=== PATIENT | female | born 1945 ===

== ENCOUNTER 2018-07-29 11:49 | Emergency (ER) | payer OTHER ==
--- NOTE | 2018-07-29 12:46 | ER ---
Nurse's Notes [facility] Name: Rina Conklin Age: 73 yrs Sex: Female : 1945 Arrival Date: 07/29/2018 Time: 11:54 Bed 6 Private MD: Diagnosis: Fall due to bumping against object;Displaced comminuted fracture of shaft of left femur-periprosthetic Presentation: 07/29 11:50 Presenting complaint: EMS states: pt fell today and is c/o left knee pain and swelling. sv Warm to the touch and "heard a crunch pop sound". Reports having surgery 6 months ago. Bp 155/76 HR-74 RR-17 99% RA. Daughter told EMS that the pt has taken 36 Zquil pills since yesterday and she took Methocarbam today at 0830. Transition of care: patient was not received from another setting of care. Onset of symptoms was July 29, 2018. Care prior to arrival: None. 11:50 Method Of Arrival: EMS: [facility] sv 11:50 Acuity: ROSENDO 4 sv 11:52 Presenting complaint: Patient states: "I slipped on some water and fell onto my back. I sv did not land on my left knee. But my left knee hurts a lot and is more swollen than normal.". Risk Assessment: Do you want to hurt yourself or someone else? Patient reports no desire to harm self or others. Initial Sepsis Screen: Does the patient meet any 2 criteria? No. Patient's initial sepsis screen is negative. Does the patient have a suspected source of infection? No. Patient's initial sepsis screen is negative. Triage Assessment: 11:50 General: Appears in no apparent distress. uncomfortable, well developed, Behavior is sv cooperative, appropriate for age, anxious. Pain: Complains of pain in left leg Pain currently is 10 out of 10 on a pain scale. Quality of pain is described as tender, throbbing, Pain began 1 hour ago. Is continuous, Aggravated by increased activity. Neuro: Level of Consciousness is awake, alert, obeys commands, Oriented to person, place, time, situation, Speech is normal. Cardiovascular: Heart tones S1 S2 present Capillary refill < 3 seconds is brisk in bilateral toes Patient's skin is warm and dry. Pulses are palpable in right radial artery, right dorsalis pedis artery, left radial artery and left dorsalis pedis artery. Respiratory: Airway is patent Respiratory effort is even, unlabored, Respiratory pattern is regular, symmetrical, Breath sounds are clear bilaterally. Derm: Skin is pink, warm \\T\\ dry. Musculoskeletal: Range of motion: limited in left knee Swelling present in left knee. Historical: - Allergies: 12:06 Aspirin; sv - Home Meds: 12:06 Crestor 20 mg oral tab 1 tab once daily [Active]; duloxetine 30 mg oral cpDR 1 cap once sv daily [Active]; Neurontin 800 mg Oral tab 1 tab 3 times per day [Active]; baclofen 10 mg Oral tab 1 tab 3 times per day [Active]; trazodone 50 mg Oral tab nightly [Active]; - PMHx: 12:06 Fibromyalgia; sv - PSHx: 12:06 Hysterectomy; left knee; sv - Immunization history:: Adult Immunizations up to date. - Social history:: Smoking status: Patient/guardian denies using tobacco. - Family history:: not pertinent. - Ebola Screening: : No symptoms or risks identified at this time. Screenin:55 Abuse screen: Denies threats or abuse. Denies injuries from another. Nutritional sv screening: No deficits noted. Tuberculosis screening: No symptoms or risk factors identified. Fall Risk No fall in past 12 months (0 pts). No secondary diagnosis (0 pts). No IV (0 pts). Ambulatory Aid- None/Bed Rest/Nurse Assist (0 pts). Gait- Weak (10 pts.). Mental Status- Oriented to own ability (0 pts). Total [place] Fall Scale indicates No Risk (0-24 pts). Assessment: 12:50 Reassessment: Patient appears in no apparent distress at this time. No changes from sv previously documented assessment. Patient and/or family updated on plan of care and expected duration. Pain level reassessed. Patient is alert, oriented x 3, equal unlabored respirations, skin warm/dry/pink. 13:42 Reassessment: Patient appears in no apparent distress at this time. Patient and/or sv family updated on plan of care and expected duration. Pain level reassessed. Patient is alert, oriented x 3, equal unlabored respirations, skin warm/dry/pink. Patient states feeling better. Vital Signs: 11:50 BP 137 / 69; Pulse 78; Resp 16; Temp 98.3; Pulse Ox 98% ; Weight 56.7 kg; Height 5 ft. sv 3 in. (160.02 cm); Pain 10/10; 12:30 BP 139 / 74; Pulse 80; Resp 14; Pulse Ox 99% ; sv 13:00 BP 118 / 65; Pulse 71; Resp 16; Pulse Ox 99% ; sv 13:15 Pain 7/10; sv 14:15 Pain 4/10; sv 11:50 Body Mass Index 22.14 (56.70 kg, 160.02 cm) sv ED Course: 11:50 Patient has correct armband on for positive identification. Bed in low position. Call sv light in reach. Side rails up X2. Adult w/ patient. potline monitor on. Pulse ox on. NIBP on. Door closed. Head of bed elevated. 11:54 Patient arrived in ED. sv 11:54 Mitali Schwarz RN is Primary Nurse. sv 11:55 Nic Milian MD is Attending Physician. estephania 12:05 Triage completed. sv 12:07 Arm band placed on. sv 12:19 Knee Left 3 View XRAY In Process Unspecified. EDMS 12:50 Initial lab(s) drawn, by nm, sent to lab. Inserted saline lock: 20 gauge in right sv forearm, using aseptic technique. Blood collected. Flushed right forearm with 5 ml normal saline. 13:[address] Milian with the [facility] transfer center. eb 13:06 administrative approval given by Jim Wyman RN at the [facility] transfer eb center/ patient is going to the ER/ Lilia Short has accepted the patient in transfer/ report to be called to [phone]. 13:09 XRAY Chest (1 view) In Process Unspecified. EDMS 13:44 No provider procedures requiring assistance completed. Patient transferred, IV remains sv in place. intact. 13:55 EKG done, by ED staff, reviewed by Nic Milian MD. ms Administered Medications: 13:00 Drug: morphine 4 mg Route: IVP; Site: right forearm; sv 13:15 Follow up: Pain 7/10 Adult; Response: No adverse reaction sv 13:00 Drug: Zofran 4 mg Route: IVP; Site: right forearm; sv 13:15 Follow up: Response: No adverse reaction sv 13:01 Drug: NS 0.9% 1000 ml Route: IV; Rate: 125 ml/hr; Site: right forearm; sv 13:57 Drug: morphine 4 mg Route: IVP; Site: right forearm; sv 14:15 Follow up: Pain /10 Adult; Response: No adverse reaction; Pain is decreased sv Outcome: 12:45 ER care complete, transfer ordered by . estephania 13:39 Transferred by ground EMS to [facility], Transfer form completed. X-rays sent sv w/ patient. Note: Report called to Gena GASPAR at [facility] ER 13:39 Condition: stable 13:39 Instructed on the need for transfer. 14:49 Patient left the ED. aj1 Signatures: Dispatcher [employer] Nanda Choudhury RN RN ajMitali Holliday RN RN sv Anderson, Corey, MD MD cha Solis, Maria ms Botello, Elizabeth eb
--- NOTE | 2018-07-29 12:47 | EDPHYS ---
Physician Documentation [facility] Name: Rina Conklin Age: 73 yrs Sex: Female : 1945 Arrival Date: 07/29/2018 Time: 11:54 Bed 6 Private MD: ED Physician Nic Milian HPI: 07/29 12:38 This 73 yrs old Female presents to ER via EMS with complaints of Knee Injury, estephania Fall Injury. 12:38 Details of fall: The patient fell from an upright position, while walking. Onset: The estephania symptoms/episode began/occurred just prior to arrival. Associated injuries: The patient sustained left leg, decreased range of motion, painful injury, swelling. Historical: - Allergies: 12:06 Aspirin; sv - Home Meds: 12:06 Crestor 20 mg oral tab 1 tab once daily [Active]; duloxetine 30 mg oral cpDR 1 cap once sv daily [Active]; Neurontin 800 mg Oral tab 1 tab 3 times per day [Active]; baclofen 10 mg Oral tab 1 tab 3 times per day [Active]; trazodone 50 mg Oral tab nightly [Active]; - PMHx: 12:06 Fibromyalgia; sv - PSHx: 12:06 Hysterectomy; left knee; sv - Immunization history:: Adult Immunizations up to date. - Social history:: Smoking status: Patient/guardian denies using tobacco. - Family history:: not pertinent. - Ebola Screening: : No symptoms or risks identified at this time. ROS: 12:38 Constitutional: Negative for fever, chills, and weight loss, Eyes: Negative for injury, estephania pain, redness, and discharge, ENT: Negative for injury, pain, and discharge, Neck: Negative for injury, pain, and swelling, Cardiovascular: Negative for chest pain, palpitations, and edema, Respiratory: Negative for shortness of breath, cough, wheezing, and pleuritic chest pain, Abdomen/GI: Negative for abdominal pain, nausea, vomiting, diarrhea, and constipation, Back: Negative for injury and pain, : Negative for injury, bleeding, discharge, and swelling, Skin: Negative for injury, rash, and discoloration, Neuro: Negative for headache, weakness, numbness, tingling, and seizure, Psych: Negative for depression, anxiety, suicide ideation, homicidal ideation, and hallucinations, Allergy/Immunology: Negative for hives, rash, and allergies, Endocrine: Negative for neck swelling, polydipsia, polyuria, polyphagia, and marked weight changes, Hematologic/Lymphatic: Negative for swollen nodes, abnormal bleeding, and unusual bruising. 12:38 MS/extremity: Positive for decreased range of motion, pain, swelling, tenderness, of the left knee. Exam: 12:38 Constitutional: This is a well developed, well nourished patient who is awake, alert, estephania and in no acute distress. Head/Face: Normocephalic, atraumatic. Eyes: Pupils equal round and reactive to light, extra-ocular motions intact. Lids and lashes normal. Conjunctiva and sclera are non-icteric and not injected. Cornea within normal limits. Periorbital areas with no swelling, redness, or edema. ENT: Nares patent. No nasal discharge, no septal abnormalities noted. Tympanic membranes are normal and external auditory canals are clear. Oropharynx with no redness, swelling, or masses, exudates, or evidence of obstruction, uvula midline. Mucous membranes moist. Neck: Trachea midline, no thyromegaly or masses palpated, and no cervical lymphadenopathy. Supple, full range of motion without nuchal rigidity, or vertebral point tenderness. No Meningismus. Chest/axilla: Normal chest wall appearance and motion. Nontender with no deformity. No lesions are appreciated. Cardiovascular: Regular rate and rhythm with a normal S1 and S2. No gallops, murmurs, or rubs. Normal PMI, no JVD. No pulse deficits. Respiratory: Lungs have equal breath sounds bilaterally, clear to auscultation and percussion. No rales, rhonchi or wheezes noted. No increased work of breathing, no retractions or nasal flaring. Abdomen/GI: Soft, non-tender, with normal bowel sounds. No distension or tympany. No guarding or rebound. No evidence of tenderness throughout. Back: No spinal tenderness. No costovertebral tenderness. Full range of motion. Female : Normal external genitalia. Skin: Warm, dry with normal turgor. Normal color with no rashes, no lesions, and no evidence of cellulitis. Neuro: Awake and alert, GCS 15, oriented to person, place, time, and situation. Cranial nerves II-XII grossly intact. Motor strength 5/5 in all extremities. Sensory grossly intact. Cerebellar exam normal. Normal gait. Psych: Awake, alert, with orientation to person, place and time. Behavior, mood, and affect are within normal limits. 12:38 Musculoskeletal/extremity: ROM: limited active range of motion due to pain, limited passive range of motion due to pain, Circulation is intact in all extremities. Sensation intact. Compartment Syndrome exam of affected extremity: is normal. Weight bearing: is unable to bear weight, DVT Exam: negative Homans' sign noted on exam, no appreciated bluish discoloration, no erythema, no increased warmth, pain, swelling, tenderness. Vital Signs: 11:50 BP 137 / 69; Pulse 78; Resp 16; Temp 98.3; Pulse Ox 98% ; Weight 56.7 kg; Height 5 ft. sv 3 in. (160.02 cm); Pain 10/10; 12:30 BP 139 / 74; Pulse 80; Resp 14; Pulse Ox 99% ; sv 13:00 BP 118 / 65; Pulse 71; Resp 16; Pulse Ox 99% ; sv 13:15 Pain 7/10; sv 14:15 Pain 4/10; sv 11:50 Body Mass Index 22.14 (56.70 kg, 160.02 cm) sv MDM: 11:55 Patient medically screened. [facility] 12:46 Data reviewed: vital signs, nurses notes, lab test result(s), radiologic studies, plain estephania films. 07/29 12:37 Order name: Basic Metabolic Panel; Complete Time: 13:43 [facility] 07/29 12:37 Order name: CBC with Diff; Complete Time: 13:43 [facility] 07/29 12:37 Order name: LFT's; Complete Time: 13:43 [facility] 07/29 12:37 Order name: Magnesium; Complete Time: 13:43 [facility] 07/29 12:37 Order name: NT PRO-BNP; Complete Time: 13:43 [facility] 07/29 12:37 Order name: PT-INR; Complete Time: 13:43 [facility] 07/29 12:07 Order name: Knee Left 3 View XRAY; Complete Time: 13:43 07/29 12:38 Order name: Troponin (emerg Dept Use Only); Complete Time: 13:43 [facility] 07/29 12:43 Order name: Acetaminophen; Complete Time: 13:43 [facility] 07/29 12:43 Order name: ETOH Level; Complete Time: 13:43 [facility] 07/29 12:43 Order name: Salicylate; Complete Time: 13:43 [facility] 07/29 13:06 Order name: PTT, Activated Partial Thromb; Complete Time: 13:43 [facility] 07/29 12:38 Order name: XRAY Chest (1 view); Complete Time: 13:43 [facility] 07/29 12:38 Order name: EKG; Complete Time: 12:38 [facility] 07/29 12:38 Order name: Cardiac monitoring; Complete Time: 13:15 [facility] 07/29 12:38 Order name: EKG - Nurse/Tech; Complete Time: 13:55 [facility] 07/29 12:38 Order name: IV Saline Lock; Complete Time: 13:15 [facility] 07/29 12:38 Order name: Labs collected and sent; Complete Time: 13:15 [facility] 07/29 12:38 Order name: O2 Per Protocol; Complete Time: 13:15 [facility] 07/29 12:38 Order name: O2 Sat Monitoring; Complete Time: 13:15 [facility] 07/29 12:38 Order name: Ice pack; Complete Time: 13:10 [facility] Administered Medications: 13:00 Drug: morphine 4 mg Route: IVP; Site: right forearm; sv 13:15 Follow up: Pain 7/10 Adult; Response: No adverse reaction sv 13:00 Drug: Zofran 4 mg Route: IVP; Site: right forearm; sv 13:15 Follow up: Response: No adverse reaction sv 13:01 Drug: NS 0.9% 1000 ml Route: IV; Rate: 125 ml/hr; Site: right forearm; sv 13:57 Drug: morphine 4 mg Route: IVP; Site: right forearm; sv 14:15 Follow up: Pain 4/10 Adult; Response: No adverse reaction; Pain is decreased sv Disposition: 07/29/18 12:45 Transfer ordered to [facility]. Diagnosis are Fall due to bumping against object, Displaced comminuted fracture of shaft of left femur - periprosthetic. - Reason for transfer: Higher level of care. - Accepting physician is to , ortho. - Condition is Fair. - Problem is new. - Symptoms have improved. Signatures: Dispatcher [facility] Nanda Choudhury RN RN aj1 Mitali Schwarz RN RN sv Anderson, Corey, MD MD cha Corrections: (The following items were deleted from the chart) 13:07 12:44 PTT, ACTIVATED+COAG.LAB.BRZ ordered. EDMS EDMS 14:49 12:45 07/29/2018 12:45 Transfer ordered to [facility]. aj1 Diagnosis is Fall due to bumping against object; Displaced comminuted fracture of shaft of left femur - periprosthetic. Reason for transfer: Higher level of care. Accepting physician is to [facility], ortho. Condition is Fair. Problem is new. Symptoms have improved. estephania
--- NOTE | 2018-07-29 12:50 | RAD REPORT ---
EXAM DESCRIPTION: RAD - Knee Left 3 View - 07/29/2018 12:22 pm CLINICAL HISTORY: Fall, leg pain COMPARISON: None. FINDINGS: A comminuted oblique fracture is present through the distal left femoral metaphysis superi or to the knee prosthesis. There is posterior angulation of 30 degrees and lateral angulation. Minima l lateral displacement. No pathologic bone component. Proximal tibia and fibula are intact.Soft tissu e swelling surrounds the knee. IMPRESSION: Distal left femur comminuted metaphysis fracture superior to the femoral component of th e knee prosthesis.
[2018-07-29] MEDS ORDERED: NA CHLORIDE 0.9% 1,000 ML ONE (12:54)
[2018-07-29] MEDS ORDERED: ONDANSETRON 4 MG/2 ML VIAL ONE (12:54)
[2018-07-29] MEDS ORDERED: MORPHINE 4 MG/ML SYR ONE ×2 (12:54→14:03)
[2018-07-29 13:16] LABS: Absolute Lymphocytes (CBC) 0.9 K/uL (0.7-4.9); Absolute Monocytes 0.5 K/uL (0.1-1.3); Absolute Neutrophil 7.4 K/uL (1.8-8.0); Basophils % 0.7 % (0-1.3); Eosinophils % 1.9 % (0-4.4); Hematocrit 37.6 % (36.0-45.0); Lymphocytes % 9.9 % (15.3-44.8); MPV 10.1 fL (7.6-11.3); Monocytes % 5.2 % (3.3-12.3); RBC Red Blood Cell Count 4.09 M/uL (3.86-4.86)
[2018-07-29 13:30] LABS: Protime INR 0.88
[2018-07-29 13:31] LABS: ALT/SGPT 36 U/L (12-78); AST/SGOT 31 U/L (15-37); Albumin 3.7 g/dL (3.4-5.0); Alkaline Phosphatase 129 U/L (45-117); BUN Blood Urea Nitrogen 23 mg/dL (7-18); Bicarbonate 31 mmol/L (21-32); Bilirubin Direct 0.1 mg/dL (0-0.2); Bilirubin Total 0.4 mg/dL (0.2-1.0); Glucose Level 98 mg/dL (74-106); Magnesium 2.4 mg/dL (1.8-2.4); NT PRO-BNP 745 pg/mL (<125); Potassium 4.3 mmol/L (3.5-5.1); Protein, Total 6.8 g/dL (6.4-8.2); Sodium Level 145 mmol/L (136-145); Troponin (Emerg Dept Use Only) < 0.02 ng/mL (0.0-0.045)
--- NOTE | 2018-07-29 13:42 | RAD REPORT ---
EXAM DESCRIPTION: RAD - Chest Single View - 07/29/2018 1:11 pm CLINICAL HISTORY: Preop chest examination, fall, femur fracture pending repair COMPARISON: None. TECHNIQUE: AP portable chest image was obtained 1307 hours . FINDINGS: Lungs are fibrotic but clear of a focal mass or infiltrate. No failure or volume overload. Heart and vasculature are normal. No measurable pleural effusion and no pneumothorax. No acute bony abnormality seen. No acute aortic findings suspected. IMPRESSION: Diffuse prominence of the interstitial markings favored to be chronic fibrosis rather th an any acute edema or infiltrate process.
--- NOTE | 2018-07-29 21:10 | EKG ---
Test Date: 2018-07-29 Test Time: 13:19:28 [employer]: MEASUREMENT RESULTS: Intervals: Rate: 68 [place]: 146 QRSD: 84 QT: 412 QTc: 438 [place]: P: 48 [place]: 146 QRS: 1 T: 37 INTERPRETIVE STATEMENTS: Normal sinus rhythm Normal ECG No previous ECG available for comparison Electronically Signed On 07-29-18 21:09:30 TRACK INSPECTOR by Wilmer Rowland
== END 2018-07-29 14:49 | disposition short-term general hospital (02) ==
LOC: ER 11:49
DX: S72.352A Displaced comminuted fracture of shaft of left femur, initial encounter for closed fracture (principal); M97.12XA Periprosthetic fracture around internal prosthetic left knee joint, initial encounter; W19.XXXA Unspecified fall, initial encounter; Y93.01 Activity, walking, marching and hiking; Y92.9 Unspecified place or not applicable; Z88.6 Allergy status to analgesic agent
CPT/HCPCS: 93005; 85025; 80048; 36415; 80320; 83735; 80329 ×2; 85610; 80076; 85730; 84484; 83880; 71045; 73562; 96375; 96374; 99285; J7030; J2405